=== PATIENT | male | born 1945 | race Caucasian/White ===

== ENCOUNTER → 2017-10-04 | Day surgery (SDC) | payer OTHER ==
--- NOTE | 2017-10-03 17:17 | History & Physical Pre-Op ---
General Information and HPI History of Present Illness: Thomas is a 72-year-old male with a long-standing and nonhealing ulcer to the lateral aspect of his right heel. The patient has undergone a prolonged course of local intensive wound care, including periodic debridements, advancement therapies consisting of allograft and compression. None of this is yielded him any significant improvement. Patient presents for preoperative surgical consultation. Allergies/Medications Allergies: Coded Allergies: vancomycin (ANAPHYLAXIS 04/14/16) Home Med list Acetaminophen 325 MG TABLET 2 TAB PO Q4H PRN PAIN/TEMP>100 (Reported) Allopurinol 100 MG TABLET 1 TAB PO DAILY GOUT Aspirin (Ecotrin*) 325 MG TABLET.DR 1 TAB PO DAILY HEART/BLOOD (Reported) Docusate Sodium (Colace) 100 MG CAPSULE 1 CAP PO BID GI (Reported) Ferrous Sulfate (Iron Supplement) 325 MG TABLET 1 TAB PO BID SUPPLEMENT ( Reported) Folic Acid 0.4 MG TABLET 1 TAB PO DAILY SUPPLEMENT (Reported) Furosemide 20 MG TABLET 60 MG PO BID CHF Hydromorphone HCl (Dilaudid) 4 MG TABLET 1 TAB PO Q4H PRN PAIN 7-10 (Reported ) Ipratropium/Albuterol Sulfate (Iprat-Albut 0.5-3(2.5) MG/3 Ml) 3 ML AMPUL.NEB 1 AMP INH Q6H PRN SOB (Reported) Metoprolol Succinate 25 MG TAB 75 MG PO BID HEART Mineral Oil/Petrolatum,White (Eucerin Creme) 120 GM CREAM..G. 1 SAMAN TOP TID ALL EXTREMITIES (Reported) Na Phos,M-B/Na Phos,Di-Ba (Fleet Enema) 133 ML ENEMA 1 E RC DAILY PRN CONSTIPATION (Reported) Niacin (Niaspan) 500 MG TAB.ER.24H 1 TAB PO DAILY CHOLESTEROL (Reported) [place]-3 Fatty Acids ([place]-3) 1,000 MG CAPSULE 1 CAP PO DAILY SUPPLEMENT ( Reported) Omeprazole 40 MG CAPSULE.DR 1 CAP PO DAILY AC GI (Reported) Petrolatum,White/Lanolin (Vitamin A & D Ointment) 113 GM OINT...G. 1 SAMAN TOP TID PRN BLE WOUNDS (Reported) Polyethylene Glycol 3350 (Miralax) 17 GM POWD.PACK 1 PAC PO DAILY PRN CONSTIPATION (Reported) dissolve in water Prednisone 5 MG TABLET 1 TAB PO SI GOUT PLEASE TAKE 5 MG TWICE A DAY ON TUESDAY AND TUESDAY AND THEN TAKE 5 MG DAILY AND FOLLOW DR. SCHREIBER. Sennosides/Docusate Sodium (Senna S Tablet) 1 EACH TABLET 2 TAB PO DAILY PRN CONSTIPATION (Reported) Simvastatin (Simvastatin*) 80 MG TABLET 1 TAB PO DAILY CHOLESTEROL (Reported) Zinc Oxide (Desitin) 56 GM CREAM..G. 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 Psychosocial History Who Do You Live With? spouse Services at Home None Primary Language: Ukrainian Living Will? unknown Functional Ability ADLs Independent: dressing, eating, toileting, bathing. Ambulation: walker IADLs Independent: finances, telephone, medication admin. Needs Assist: shopping, housework, food prep, transportation. Review of Systems Review of Systems: Unremarkable except for that noted in history of present illness Exam & Diagnostic Data Last 24 Hrs of Vital Signs/I&O Intake & Output 10/03 1600 10/03 0800 10/03 0000 Intake Total Output Total Balance Patient 268 lb Weight Physical Exam: Lungs clear bilaterally. Heart sounds rate and rhythm regular. Lower extremity physical exam demonstrates intact pedal pulses bilaterally. Pulses dorsalis pedis and posterior tibial arteries are palpable bilaterally. Patient with a 4 cm x 6 cm full-thickness Ivory grade 2 ulceration at the lateral aspect of the right heel. There is slough overlying a mixed granular fibrotic wound bed. Erythema noted to extend approximately 3-4 cm about the periphery of the lesion. No probing or undermining identified. Assessment/Plan Assessment/Plan: Necrotic and nonhealing ulcer lateral aspect right heel. A lengthy discussion reviewing both surgical and conservative options was held the patient bedside and the patient elects to go forward with surgery despite the risks. As Ranked By This Provider Problem List: 1. Cellulitis 2. Non-pressure chronic ulcer of right heel and midfoot with fat layer exposed Attending MD Review Statement Attending Statement Attending MD Statement: examined this patient
[~2017-10-04] VITALS: Ht 182.9 cm; Wt 121.6 kg
[~2017-10-04] MED LIST: ACEPHEN650 M1 PR; ACETAMINOPHEN325 M2 PO; ALLOPURINOL100 M1 PO; ASPIRIN EC325 M2 PO; BISACODYL10 M1 RC; CLOPIDOGREL75 M1 PO; COLACE100 M1 PO; CUBICIN500 MG IV; DESITIN56 GM TOP; DILAUDID4 M1 PO; EUCERIN CREME120 GM TOP; FLEET ENEMA133 ML RC; FOLIC ACID0.4 M1 PO; FUROSEMIDE20 M1 PO; HYDROCHLOROTHIA25 M1 PO; HYDROMORPHONE HC2 M1 PO; IPRAT-ALBUT 0.5-3 ML INH; IRON SUPPLEMEN325 MG PO; KAYEXALATE453.6 GM PO; LISINOPRIL5 M1 PO; METOPROLOL SUCC25 M1 PO; METOPROLOL TART50 M1 PO; MIRALAX119 GM PO; MIRALAX17 G1 PO; NIASPAN500 M1 PO; OMEGA-31000 M1 PO; OMEPRAZOLE20 M2 PO; OMEPRAZOLE40 M1 PO; PREDNISONE5 M1 PO; SENNA PLUS TAB1 EACH PO; SENNA S TABLET1 EACH PO; SIMVASTATIN80 M1 PO; TYLENOL325 M1 PO; VITAMIN A & D113 GM TOP; VITAMIN A & D56.7 GM TOP
--- NOTE | 2017-10-04 08:39 | Operative Report ---
Operative/Inv Procedure Report Surgery Date: 10/04/17 Name of Procedure: 1 open incision and drainage deep to the deep fascia with exposure of the flexor tendon and tendon sheath multiple sites right heel 2 intraoperative administration of negative pressure wound therapy 3 intraoperative administration of ankle block anesthesia 4 excisional debridement Pre-Operative Diagnosis: 1 open necrotic wound right foot 2 mixed venous and peripheral arterial disease Post-Operative Diagnosis: The same Estimated Blood Loss: less than 50ml Surgeon/Magnetic Healer: Stephen Live DPM Anesthesia: moderate sedation, block Operative/Procedure Note Note: After obtaining informed consent the patient was brought to the operating room and placed on the operating table in supine position. The patient isn't securely fastened to the operating table utilizing safety belt. After administration of IV sedation, 10 mL of 0.5% Marcaine plain was infiltrated about the patient's right ankle. The right foot and ankle within scrubbed prepped and draped in usual aseptic manner. Attention was directed to the lateral aspect of the right foot, where a 6 cm x 4 cm x 1 cm necrotic was identified. A 15 blade visualized sharply revise the skin margins. The dissection was then carried down deep to the deep fascia with exposure of the flexor tendon and tendon sheath multiple sites, both proximally and distally. All necrotic, nonviable infected tissue sharply evacuated from the wound bed. Specimen was sent for microbiologic inspection. The open wound was then irrigated with 3 L normal sterile saline infusion 50,000 units of bacitracin utilizing pulse lavage device. Following this, the foot was redraped and surgeon's top was changed clean gloves. Any bleeding vessels identified were cauterized or ligated as encountered. Next, negative pressure wound therapy was placed about the open wound. This was followed by irrigation Kerlix and Coban. The patient noted tolerate both procedure and anesthesia well and the patient was transported from the operating room to recovery by sent stable best assess intact all digits right foot.
== END ==
LOC: STS 01:11
DX: L97.412 Non-pressure chronic ulcer of right heel and midfoot with fat layer exposed (principal); I87.2 Venous insufficiency (chronic) (peripheral); I73.9 Peripheral vascular disease, unspecified
CPT/HCPCS: 87070; 87075; 36415; J0690; J2001; J2250

== ENCOUNTER → 2017-11-15 | Day surgery (SDC) | payer OTHER ==
--- NOTE | 2017-11-14 18:33 | History & Physical Pre-Op ---
General Information and HPI History of Present Illness: Thomas is a 72-year-old male with a long-standing nonhealing ulcer to the lateral aspect of his right heel. The patient is recently status post I&D with negative pressure wound therapy. The patient has been followed by me in the outpatient setting for weekly debridements and wound VAC dressing changes. The patient's wound bed is now optimized for definitive closure consisting of split-thickness skin grafting. Allergies/Medications Allergies: Coded Allergies: vancomycin (ANAPHYLAXIS 04/14/16) Home Med list Aspirin (Ecotrin*) 325 MG TABLET.DR 1 TAB PO DAILY HEART/BLOOD (Reported) Atorvastatin Calcium 40 MG TABLET 1 TAB PO DAILY CHOLESTEROL (Reported) Clopidogrel Bisulfate (Clopidogrel) 75 MG TABLET 1 TAB PO DAILY BLOOD THINNER (Reported) Furosemide (Lasix) 20 MG TABLET 1 TAB PO DAILY DIURETIC (Reported) Metoprolol Tartrate 50 MG TABLET 1 TAB PO BID HEART/BP (Reported) Niacin 500 MG TABLET 1 TAB PO BID SUPPLEMENT (Reported) [facility]-3 Fatty Acids ([facility]-3) 1,000 MG CAPSULE 1 CAP PO DAILY SUPPLEMENT ( Reported) Past History Medical History Neurological: NONE EENT: NONE Cardiovascular: CAD (s/p 5 stents), chronic venous insuff, hypertension, myocardial infarction Respiratory: NONE Gastrointestinal: GERD Hepatic: NONE Renal: NONE Musculoskeletal: gout, OSTEOMYELITIS Psychiatric: NONE Endocrine: NONE Blood Disorders: NONE Cancer(s): 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 Psychosocial History Who Do You Live With? spouse Services at Home None Primary Language: Urdu Living Will? unknown Functional Ability ADLs Independent: dressing, eating, toileting, bathing. Ambulation: walker IADLs Independent: finances, telephone, medication admin. Needs Assist: shopping, housework, food prep, transportation. Review of Systems Review of Systems: Unremarkable except for a noted history of present illness Exam & Diagnostic Data Last 24 Hrs of Vital Signs/I&O Intake & Output 11/14 1600 03 0800 11/14 0000 Intake Total Output Total Balance Patient 268 lb Weight Physical Exam: Lungs clear bilaterally. Heart sounds rate and rhythm regular. Lower extremity physical exam demonstrates intact pedal pulses bilaterally. Both dorsalis pedis and posterior tibial arteries are palpable bilaterally. Patient with a sensory deficit identified in a moccasin type distribution bilaterally.. Deep tendon reflexes grossly intact. 4 cm x 4 cm Ivory grade 2 ulceration identified lateral aspect the right heel. There is superficial slough overlying an otherwise uniformly granulated wound bed. No probing or undermining identified. No fluctuance or crepitus identified. Erythema noted about the wound bed extending 4-5 cm. No foot. Assessment/Plan Assessment/Plan: Nonhealing ulcer right heel. A lengthy discussion reviewing both surgical and conservative options was held the patient at bedside and the patient elects to go forward with surgery despite the risks. As Ranked By This Provider Problem List: 1. Non-pressure chronic ulcer of right heel and midfoot with fat layer exposed Attending MD Review Statement Attending Statement Attending MD Statement: examined this patient
[~2017-11-15] VITALS: Ht 182.9 cm; Wt 121.6 kg
[~2017-11-15] MED LIST changes: +ATORVASTATIN CA40 M1 PO; +LASIX20 M1 PO; +NIACIN500 M7 PO
--- NOTE | 2017-11-15 11:24 | Operative Report ---
Operative/Inv Procedure Report Surgery Date: 11/15/17 Name of Procedure: 1 split-thickness skin graft right heel 2 intraoperative application of negative pressure wound therapy 3 intraoperative decision of ankle block anesthesia Pre-Operative Diagnosis: 1 nonhealing ulcer right heel Post-Operative Diagnosis: The same Estimated Blood Loss: scant Surgeon/Finishing Pan Operator: Stephen Live DPM Anesthesia: moderate sedation, block Operative/Procedure Note Note: After obtaining informed consent the patient was brought to the operating room and placed on the operating table in supine position. The patient isn't securely fastened to the operating table utilizing safety belt. After administration of IV sedation, 10 mL 5% Marcaine plain was infiltrated about the patient's right ankle. The right foot ankle and lower extremity within scrubbed prepped and draped in usual aseptic manner. Attention was then directed to the right heel, where a 4 cm x 4 cm Ivory grade 2 ulceration was identified. There is superficial slough overlying an otherwise uniformly cannulated wound bed. No probing or undermining identified. Minimal serous drainage identified. The wound bed was then curetted and irrigated with 3 L normal sterile saline fissure 50,000 units of bacitracin utilizing the pulse was device. A 17/1000th inch spitting skin graft was then elevated off of the lateral leg after infiltrating with 1% with epi and meshed a ratio of 1/2-1. The graft was then fixated at its margins of the recipient site with skin lizzeth. Adaptic and negative pressure wound therapy was then placed the donor site was then dressed with bacitracin Xeroform and a Kerlix. Patient noted tolerate both procedure and anesthesia well and the patient was transported from the operating room to recovery with vital signs stable.
== END ==
LOC: STS 02:12
DX: L97.412 Non-pressure chronic ulcer of right heel and midfoot with fat layer exposed (principal); I25.10 Atherosclerotic heart disease of native coronary artery without angina pectoris; Z98.61 Coronary angioplasty status; I10 Essential (primary) hypertension; Z87.891 Personal history of nicotine dependence; K21.9 Gastro-esophageal reflux disease without esophagitis; I25.2 Old myocardial infarction; Z86.14 Personal history of Methicillin resistant Staphylococcus aureus infection; Z79.82 Long term (current) use of aspirin
CPT/HCPCS: J0690; J1885; J2001; J2250